=== PATIENT | female | born 1995 | race Caucasian/White ===

== ENCOUNTER → 2021-05-26 | Outpatient (REF) | LOC: M LABSMTC 10:08 | PROVIDERS: ATTEND Pediatrics | DX: Z20.822 Contact with and (suspected) exposure to COVID-19 (principal) ==

== ENCOUNTER 2021-10-09 10:02 | Emergency (ER) | payer SELFPAY ==
[~2021-10-09] VITALS: Ht 165.1 cm; Wt 106.5 kg
[2021-10-09] MEDS ORDERED: SUMA25TA3 PO (10:10)
[2021-10-09] MEDS ORDERED: ACET-683 PO (10:10)
[2021-10-09 12:16] VITALS: BP 127/66
== END 2021-10-09 12:19 | disposition home or self-care (01) ==
LOC: M ED 10:02
DX: N94.6 Dysmenorrhea, unspecified (principal); Z91.013 Allergy to seafood; Z79.899 Other long term (current) drug therapy

== ENCOUNTER 2022-06-14 03:42 | Emergency (ER) | payer SELFPAY ==
[~2022-06-14] VITALS: Ht 167.6 cm; Wt 104.5 kg
[~2022-06-14 03:42] MED LIST: ACET-683 PO; SUMA25TA3 PO
[2022-06-14 04:36] LABS: BASO % 0.3 % (0.0-1.0); EOS # 0.1 10^3/uL (0.0-0.5); EOS % 0.7 % (0.0-3.0); HEMATOCRIT 37.5 % (36.0-47.0); HEMOGLOBIN 12.8 g/dl (12.0-15.5); LYMPH # 1.2 10^3/uL (1.5-5.0); MEAN CORPUSCULAR HEMOGLOBIN 31.8 pg (27.0-33.0); MEAN CORPUSCULAR HGB CONC 34.1 g/dl (32.0-36.5); MEAN CORPUSCULAR VOLUME 93.3 fl (80.0-96.0); MONO # 0.5 10^3/uL (0.0-0.8); MONO % 3.3 % (2.0-8.0); NEUTROPHILS # 13.2 10^3/uL (1.5-8.5); NEUTROPHILS % 87.4 % (36.0-66.0); PLATELET COUNT, AUTOMATED 285 10^3/uL (150-450); RED BLOOD COUNT 4.02 10^6/uL (4.00-5.40); WHITE BLOOD COUNT 15.1 10^3/uL (4.0-10.0)
[2022-06-14 04:48] LABS: INR 0.91; PROTHROMBIN TIME 12.5 SECONDS (12.5-14.5)
[2022-06-14 05:04] LABS: CK-MB VALUE MASS < 1.0 NG/ML (<3.6)
[2022-06-14 05:05] LABS: ALBUMIN 3.6 G/DL (3.2-5.2); ALKALINE PHOSPHATASE 77 U/L (46-116); ALT/SGPT 16 U/L (7.0-40); AST/SGOT 16 U/L (<34); BILIRUBIN,TOTAL 0.4 MG/DL (0.3-1.2); BLOOD UREA NITROGEN 15 MG/DL (9-23); CALCIUM LEVEL 8.6 MG/DL (8.5-10.1); CARBON DIOXIDE LEVEL 22 MMOL/L (20-31); CHLORIDE LEVEL 108 MMOL/L (98-107); CPK CREATINE PHOSPHOKINASE 78 U/L (34-145); CREATININE FOR GFR 0.81 MG/DL (0.55-1.30); GLOMERULAR FILTRATION RATE > 60.0 (>60); GLUCOSE, FASTING 114 MG/DL (60-100); MB/CK RELATIVE INDEX 1.28 (< OR =4); POTASSIUM SERUM 3.9 MMOL/L (3.5-5.1); SODIUM LEVEL 139 MMOL/L (136-145); TOTAL PROTEIN 6.2 G/DL (5.7-8.2)
[2022-06-14 08:33] VITALS: BP 119/70
[2022-06-15] MEDS ORDERED: BENZ200C70 PO (19:12)
[2022-06-15] MEDS ORDERED: REGL10TA6 PO (19:12)
[2022-06-15] MEDS ORDERED: MUCI1TAB16 PO (19:12)
== END 2022-06-14 11:02 | disposition left against medical advice (07) ==
LOC: M ED 03:42
DX: Z53.21 Procedure and treatment not carried out due to patient leaving prior to being seen by health care provider (principal)

== ENCOUNTER 2022-06-15 15:45 | Emergency (ER) | payer OTHER, SELFPAY ==
[~2022-06-15] VITALS: Ht 165.1 cm; Wt 100.9 kg
[2022-06-15] MEDS ORDERED: guaiFENesin ER 600 MG TAB PO STA (17:06)
[2022-06-15] MEDS ORDERED: ISOVUE-370 76% 100ML VIAL As Ordered ONE (17:09)
[2022-06-15] MEDS ORDERED: NS 1,000 ML IV ONE (17:10)
[2022-06-15] MEDS ORDERED: METOCLOPRAMIDE INJ 10MG/2ML VIAL IV ONE (17:10)
[2022-06-15] MEDS ORDERED: BENZONATATE 100MG CAPSULE PO ONE (17:10)
[2022-06-15] MEDS ORDERED: KETOROLAC 30 MG/ML 1ML VIAL IV ONE (17:10)
[2022-06-15 17:33] LABS: BASO # 0.1 10^3/uL (0.0-0.2); BASO % 0.6 % (0.0-1.0); EOS # 0.3 10^3/uL (0.0-0.5); EOS % 2.9 % (0.0-3.0); HEMATOCRIT 40.9 % (36.0-47.0); HEMOGLOBIN 13.6 g/dl (12.0-15.5); LYMPH # 3.1 10^3/uL (1.5-5.0); LYMPH % 29.3 % (24.0-44.0); MEAN CORPUSCULAR HEMOGLOBIN 31.6 pg (27.0-33.0); MEAN CORPUSCULAR HGB CONC 33.3 g/dl (32.0-36.5); MEAN CORPUSCULAR VOLUME 95.1 fl (80.0-96.0); MONO # 0.5 10^3/uL (0.0-0.8); MONO % 4.8 % (2.0-8.0); NEUTROPHILS # 6.5 10^3/uL (1.5-8.5); NEUTROPHILS % 62.1 % (36.0-66.0); PLATELET COUNT, AUTOMATED 325 10^3/uL (150-450); WHITE BLOOD COUNT 10.4 10^3/uL (4.0-10.0)
[2022-06-15] MEDS ORDERED: MUCI1TAB16 PO (19:12)
[2022-06-15] MEDS ORDERED: BENZ200C70 PO (19:12)
[2022-06-15] MEDS ORDERED: REGL10TA6 PO (19:12)
[2022-06-15 20:29] VITALS: BP 116/71
== END 2022-06-15 20:31 | disposition home or self-care (01) ==
LOC: M ED 15:45
DX: J06.9 Acute upper respiratory infection, unspecified (principal); R89.1 Abnormal level of hormones in specimens from other organs, systems and tissues; E78.5 Hyperlipidemia, unspecified; R51.9 Headache, unspecified; Z91.013 Allergy to seafood; Z79.1 Long term (current) use of non-steroidal anti-inflammatories (NSAID); Z79.899 Other long term (current) drug therapy
CPT/HCPCS: 84702; 85025; 96374; 99284; J2765

== ENCOUNTER → 2022-06-18 | Outpatient (CLI) | payer OTHER ==
[~2022-06-18] MED LIST changes: +BENZ200C70 PO; +MUCI1TAB16 PO; +REGL10TA6 PO
== END ==
LOC: M LAB 10:28
PROVIDERS: ATTEND Physician Assistant
DX: R89.1 Abnormal level of hormones in specimens from other organs, systems and tissues (principal)

== ENCOUNTER 2023-06-19 16:10 | Inpatient (IN) | payer OTHER ==
[~2023-06-19] VITALS: Ht 165.1 cm; Wt 117.4 kg
[2023-06-19] MEDS ORDERED: PRENTAB9 PO (16:44)
[2023-06-19] MEDS ORDERED: ECOT81TA5 PO (16:47)
[2023-06-19] MEDS ORDERED: COLA100C5 PO (16:47)
[2023-06-19] MEDS ORDERED: MIRA1POW3 PO (16:47)
[2023-06-19] MEDS ORDERED: HOME MED LIST COMPLETE! XX SCH (16:50)
[2023-06-19 16:51] VITALS: BP 103/69
[2023-06-19] MEDS ORDERED: LACTATED RINGER'S 1000 ML IV STA (17:42)
[2023-06-19] MEDS ORDERED: CARBOPROST TROMETHAMINE 250 MCG/ML AMP IM PRN (17:45)
[2023-06-19] MEDS ORDERED: OXYTOCIN INJ 10UNITS/ML 1ML VIAL IV PRN (17:45)
[2023-06-19] MEDS ORDERED: LIDOCAINE 1% MDV 20ML VIAL INFIL PRN (17:45)
[2023-06-19] MEDS ORDERED: TRANEXAMIC ACID INJection 1,000 MG in NS 100 ML IV PRN (17:45)
[2023-06-19] MEDS ORDERED: METHYLERGONOVINE MALEATE 0.2MG/ML 1ML VIAL IM PRN (17:45)
[2023-06-19] MEDS ORDERED: OXYTOCIN INJ 10UNITS/ML 1ML VIAL IM PRN (17:45)
[2023-06-19] MEDS ORDERED: LR 1,000 ML IV SCH ×2 (17:45)
[2023-06-19] MEDS ORDERED: OXYTOCIN DRIP 30 UNITS in IV 1 EA IV PRN ×6 (17:45)
[2023-06-19] MEDS ORDERED: OXYTOCIN DRIP 30 UNITS in IV 1 EA IV SCH (17:45)
[2023-06-19 17:50] VITALS: BP 104/55
[2023-06-19] MEDS: miSOPROStol 50MCG 1/2 TABLET PO PRN (18:23)
[2023-06-19 18:26] VITALS: BP 117/58
[2023-06-19 18:35] LABS: HEMATOCRIT 31.7 % (36.0-47.0); HEMOGLOBIN 10.8 g/dl (12.0-15.5); MEAN CORPUSCULAR HEMOGLOBIN 31.7 pg (27.0-33.0); MEAN CORPUSCULAR HGB CONC 34.1 g/dl (32.0-36.5); PLATELET COUNT, AUTOMATED 268 10^3/uL (150-450); RED BLOOD COUNT 3.41 10^6/uL (4.00-5.40); WHITE BLOOD COUNT 8.3 10^3/uL (4.0-10.0)
[2023-06-20] VITALS (27 sets, daily range): BP systolic 100–166; BP diastolic 51–107; O2SAT 100
[2023-06-20] MEDS: miSOPROStol 50MCG 1/2 TABLET PO PRN ×2 (02:22→09:37)
[2023-06-20] MEDS ORDERED: FENTANYL 2MCG/ML ROPIVACAINE 0.2% IN 0.9% NACL 100ML IVBAG As Ordered ONE (10:55)
[2023-06-20] MEDS ORDERED: NALOXONE INJ 0.4MG/1ML VIAL IV PRN (11:05)
[2023-06-20] MEDS ORDERED: ONDANSETRON 4MG 2ML VIAL IV PRN (11:05)
[2023-06-20] MEDS ORDERED: EPIDURAL/PCA KEYS XX PRN (11:05)
[2023-06-20] MEDS ORDERED: diphenhydrAMINE 50MG/ML VIAL IV PRN (11:05)
[2023-06-20] MEDS ORDERED: FENTANYL/ROPIVACAINE/NACL BAG 100 ML EPIDURAL SCH (11:05)
[2023-06-20] MEDS ORDERED: ePHEDrine SULFATE 25 MG/5 ML(5MG/ML) SYRINGE IVP PRN (11:05)
[2023-06-20] MEDS ORDERED: LR 500 ML IV PRN (11:05)
[2023-06-20] MEDS ORDERED: METHYLERGONOVINE MALEATE 0.2 MG TAB PO PRN (17:35)
[2023-06-20] MEDS ORDERED: OXYTOCIN DRIP 30 UNITS in IV 1 EA IV SCH (17:35)
[2023-06-20] MEDS ORDERED: IBUPROFEN 600MG TAB PO PRN (17:35)
[2023-06-20] MEDS ORDERED: ACETAMINOPHEN TAB 650MG DOSE (2X325MG) PO PRN (17:35)
[2023-06-20] MEDS: DIBUCAINE 1% OINTMENT 30GM TOP PRN (19:45)
[2023-06-20] MEDS: DOCUSATE SODIUM 100MG CAPSULE PO SCH (20:15)
[2023-06-20] MEDS: ACETAMINOPHEN 500 MG TAB PO PRN (21:31)
[2023-06-21] MEDS: ACETAMINOPHEN 500 MG TAB PO PRN ×3 (05:43→21:26)
[2023-06-21 06:00] VITALS: BP 136/68; O2SAT 99
[2023-06-21] MEDS: PRENATAL VITAMINS CHEWABLE TABLET PO SCH (09:07)
[2023-06-21] MEDS: IBUPROFEN 800 MG TAB PO PRN ×2 (09:08→18:39)
[2023-06-21] MEDS: DOCUSATE SODIUM 100MG CAPSULE PO SCH ×2 (09:08→20:41)
[2023-06-21] MEDS: DIBUCAINE 1% OINTMENT 30GM TOP PRN (09:09)
[2023-06-21] MEDS: MIRALAX *UNIT DOSE* 17GM PACKET PO SCH (11:29)
[2023-06-21 18:00] VITALS: BP 117/73; O2SAT 98
[2023-06-22 05:48] VITALS: BP 116/58; O2SAT 97
[2023-06-22] MEDS: MIRALAX *UNIT DOSE* 17GM PACKET PO SCH (08:37)
[2023-06-22] MEDS: DOCUSATE SODIUM 100MG CAPSULE PO SCH (08:37)
[2023-06-22] MEDS: PRENATAL VITAMINS CHEWABLE TABLET PO SCH (08:37)
[2023-06-22] MEDS: IBUPROFEN 800 MG TAB PO PRN (08:39)
== END 2023-06-22 13:46 | disposition home or self-care (01) | DRG 807 ==
LOC: M LDI 16:10 → M OBS 06-20 19:30
PROVIDERS: ADMIT Obstetrics & Gynecology; ATTEND Advanced Practice Midwife
PROC: 3E0P7GC Introduction of Other Therapeutic Substance into Female Reproductive, Via Natural or Artificial Opening (ICD-10-PCS; 2023-06-19)
PROC: 10E0XZZ Delivery of Products of Conception, External Approach (ICD-10-PCS; principal; 2023-06-20)
PROC: 0KQM0ZZ Repair Perineum Muscle, Open Approach (ICD-10-PCS; 2023-06-20)
PROC: 10907ZC Drainage of Amniotic Fluid, Therapeutic from Products of Conception, Via Natural or Artificial Opening (ICD-10-PCS; 2023-06-20)
DX: O76 Abnormality in fetal heart rate and rhythm complicating labor and delivery (principal); Z37.0 Single live birth; Z3A.40 40 weeks gestation of pregnancy; O69.1XX0 Labor and delivery complicated by cord around neck, with compression, not applicable or unspecified; O70.1 Second degree perineal laceration during delivery